=== PATIENT | female | born 2000 | race Caucasian/White ===

== ENCOUNTER 2022-12-14 18:35 | Emergency (ER) | payer MEDICAID ==
[~2022-12-14] VITALS: Ht 162.6 cm; Wt 106.8 kg
[2022-12-14 18:43] VITALS: BP 142/88; PULSE 78; RESP 16; TEMP 98.1; O2SAT 98
== END 2022-12-14 20:44 | disposition left against medical advice (07) ==
LOC: ER 18:37
DX: M79.601 Pain in right arm (principal); Z53.21 Procedure and treatment not carried out due to patient leaving prior to being seen by health care provider
CPT/HCPCS: 99281

== ENCOUNTER 2024-09-25 11:58 | Emergency (ER) | payer MEDICAID ==
[~2024-09-25] VITALS: Ht 162.6 cm; Wt 110.4 kg
[2024-09-25 12:03] VITALS: BP 138/78; PULSE 81; RESP 18; TEMP 98; O2SAT 98
--- NOTE | 2024-09-25 12:40 | Physician Documentation ---
History of Present Illness ~ Chief Complaint: Complications Stated Complaint: THROWING UP/ CAN NOT KEEP ANYTHING DOWN Time Seen by MD: 12:21 OK to notify your PCP?: Yes Primary Medical Doctor: NONE Source: patient Mode of Arrival: POV Exam Limitations: no limitations HPI 24-year-old female with chief complaint vomiting which she states is related to her morning sickness but this morning and was just worse than her usual. This is her 1st she is currently 14 weeks . She states she has vomited 5 times this morning. She took an [id number] medication called bovine for her nausea which did not help. She has an appointment to see her scale adjuster this week. She denies any abdominal pain, pelvic pain, urinary symptoms, vaginal bleeding, fever, chills. Medication Reconciliation Allergies: Coded Allergies: Sulfa (Sulfonamide Antibiotics) (Verified Allergy, Intermediate, RASH, 09/25/24) Past Medical History Past Medical History: No Pertinent History Review of Systems All Other Systems at this time: Reviewed and Negative Physical Exam Physical Exam Vital Signs: Temperature: 98.0, Source: Oral, Heart Rate: 81, Respiratory Rate: 18, BP: 138/78, Pulse Oximetry: 98, Weight: 110.400 Oxygen Flow Rate: 0 Physical Exam General Appearance: Alert, WD/WN. NAD. HEENT: NCAT, PERRL, EOMI. Neck: Supple, trachea midline. Cardiovascular: RRR. No m/r/g. Lungs: CTAB. Breathing unlabored Extremities: Normal inspection. No edema. Skin: Warm/dry, normal color Neurological: Alert and oriented x4, normal gait. Psychiatric: Affect congruent with mood. Progress Results/Orders Results/Orders Completed Orders - DARRIAN MCKENNA Normal Saline 1000ml (Sodium Chloride 10 (09/25/24 12:45) Ondansetron Inj. (Zofran 4mg/2ml Vial) (09/25/24 12:45) Medications Received in ER Medications (Trade) Dose Ordered Sig/Ras Route PRN Reason Start Time Stop Time Status Last Admin Dose Admin (sodium chloride 1000ml IV soln) 1,000 ml ONCE ONCE IVB 09/25/24 12:45 09/25/24 12:46 DC 09/25/24 13:00 1,000 ML (Zofran 4mg/2ml vial) 4 mg ONCE ONCE IV 09/25/24 12:45 09/25/24 12:46 DC 09/25/24 13:00 4 MG Vital Signs 09/25/24 12:03 Temp 98.0 Pulse 81 Resp 18 B/P (MAP) 138/78 Pulse Ox 98 O2 Flow Rate 0 Medical Decision Making Differential Dx:Considerations: Include: -complete, - incomplete, -inevitable, -missed, -threatened, Abruptio placentae, Active labor-term, Active labor-, Appendicitis, [place] contraction, Cystitis: Acute, Discomfort of , Ectopic , Ectopic preg.-ruptured, demise, Placenta previa, Pyelonephritis: Acute, Ruture of membranes, Third trimester bleeding, UTI, Vaginal bleeding, Vaginal delivery Additional Comment Symptoms just started this morning given the fact that her symptoms just started this morning and vitals are stable I did not feel there was any need to draw labs we hydrated here and gave her Zofran symptoms resolved Departure Time of Disposition: 12:37 Disposition: 01 HOME / SELF CARE / HOMELESS Impression: Primary Impression: Nausea and vomiting in Condition: Stable Discharge Instructions: Nausea and Vomiting, Adult, [id number] Additional Instructions: I SENT RX FOR ZOFRAN TO YOUR PHARMACY IF NAUSEA NOT CONTROLLED ON ZOFRAN RETURN TO ER Referrals: NO PRIMARY CARE PROVIDER (PCP) Prescriptions Ondansetron HCl (Ondansetron HCl) 4 Mg Tablet 1 TAB PO TID PRN for nausea/vomiting for 10 Days, #30 TAB 0 Refills Prov: DARRIAN MCKENNA 09/25/24 Education Educated: Patient Educated regarding: diagnosis, treatment, need for follow up Signature Scribe Signature: gemma Attestation: DARRIAN Britt Sep 25, 2024 12:40
[2024-09-25] MEDS: normal saline 1000ML IV soln IVB ONE (13:00)
[2024-09-25] MEDS: ondansetron/PF 4mg/2ml inj IV ONE (13:00)
[2024-09-25] MEDS ORDERED: ONDA-103 PO (13:19)
== END 2024-09-25 13:32 | disposition home or self-care (01) ==
LOC: ER 11:59
DX: O21.9 Vomiting of pregnancy, unspecified (principal); Z3A.14 14 weeks gestation of pregnancy; Z88.2 Allergy status to sulfonamides
CPT/HCPCS: 96361; 96374; 99283; J2405; J7030

== ENCOUNTER 2024-10-27 14:14 | Emergency (ER) | payer MEDICAID ==
[~2024-10-27] VITALS: Ht 165.1 cm; Wt 111.8 kg
[~2024-10-27 14:14] MED LIST: ONDA-103 PO
[2024-10-27 14:23] VITALS: BP 113/66; PULSE 133; RESP 16; TEMP 99; O2SAT 100
== END 2024-10-27 16:26 | disposition left against medical advice (07) ==
LOC: ER 14:15
DX: O26.892 Other specified pregnancy related conditions, second trimester (principal); Z3A.19 19 weeks gestation of pregnancy; Z53.21 Procedure and treatment not carried out due to patient leaving prior to being seen by health care provider